=== PATIENT | female | born 1980 | race African-American/Black ===

== ENCOUNTER 2022-02-26 18:15 | Inpatient (IN) | payer OTHER ==
[2022-02-26] MEDS ORDERED: ELECTROLYTE-148 SOLN 1,000 ML IV SCH (19:45)
[2022-02-26 20:13] LABS: BASO % 0.4 % (0-2.0); EOS % 0.4 % (0-4.5); HEMATOCRIT 36.6 % (32.4-45.2); HEMOGLOBIN 12.6 GM/dL (10.7-15.3); MCH 30.6 pg (25.7-33.7); MCHC 34.5 g/dl (32.0-36.0); MEAN CELL VOLUME 88.8 fl (80-96); MEAN PLT VOLUME 10.4 fl (7.5-11.1); MONO % 6.7 % (3.8-10.2); NEUT % 79.5 % (42.8-82.8); RBC 4.12 M/mm3 (3.60-5.2); RDW 14.9 % (11.6-15.6); WHITE BLOOD COUNT 10.1 K/mm3 (4.0-10.0)
[2022-02-26 20:14] LABS: EPI CELLS >36 /uL (0-25.1); HYALINE CASTS 1 /uL (0-3.1); PH,URINE 6.5 (5.0-8.0); URINE APPEARANCE CLEAR; URINE BACTERIA 63 /uL (0-1359); URINE BILIRUBIN NEGATIVE (NEGATIVE); URINE COLOR YELLOW; URINE GLUCOSE (UA) NEGATIVE (NEGATIVE); URINE KETONE NEGATIVE (NEGATIVE); URINE LEUK ESTERASE 1+ (NEGATIVE); URINE NITRITE NEGATIVE (NEGATIVE); URINE PROTEIN NEGATIVE (NEGATIVE); URINE RBC 26 /uL (0-23.9); URINE UROBILINOGEN 0.2 mg/dL (0.2-1.0); URINE WBC 48 /uL (0-25.8)
[2022-02-26 20:22] LABS: INR 0.97 (0.83-1.09); PROTHROMBIN TIME (PATIENT) 11.1 SEC (9.7-13.0)
[2022-02-26 20:33] LABS: ALBUMIN 2.4 g/dl (3.4-5.0); CALCIUM 8.8 mg/dL (8.5-10.1)
[2022-02-26 20:34] VITALS: BMI 30.2
[2022-02-26 20:36] LABS: CREATININE 0.3 mg/dL (0.55-1.3); URIC ACID 3.4 mg/dL (2.6-7.2)
[2022-02-26 20:38] LABS: BILIRUBIN,TOTAL 0.2 mg/dL (0.2-1); TOT PROT 5.5 g/dl (6.4-8.2)
[2022-02-26 21:33] LABS: PLATELET COUNT 92 10^3/uL (134-434); PLATELET ESTIMATE ADEQUATE
[2022-02-26] MEDS ORDERED: ACETAMINOPHEN INJECTION 100 ML IVPB ONE (21:55)
[2022-02-26] MEDS ORDERED: ACETAMINOPHEN 1000 MG/100 ML BAG IVPB ONE (22:30)
[2022-02-26] MEDS ORDERED: BETAMET ACET/BETAMET NA PH 30 MG/5 ML VIAL ONE (23:46)
[2022-02-26] MEDS: BETAMET ACET/BETAMET NA PH 30 MG/5 ML VIAL IM SCH (23:50)
[2022-02-27] MEDS ORDERED: MAGNESIUM 4GM/H20 - 4 GM/100 ML IVPB IVPB SCH (00:30)
[2022-02-27] MEDS ORDERED: MAGNESIUM SULFATE 20GM/500ML - 20 GM/500 ML INFUS.BAG IVPB SCH (00:30)
[2022-02-27 01:53] LABS: ALBUMIN 2.5 g/dl (3.4-5.0); CALCIUM 9.1 mg/dL (8.5-10.1)
[2022-02-27 01:56] LABS: CREATININE 0.4 mg/dL (0.55-1.3)
[2022-02-27 01:58] LABS: BILIRUBIN,TOTAL 0.2 mg/dL (0.2-1); TOT PROT 5.6 g/dl (6.4-8.2)
[2022-02-27 02:09] LABS: BASO % 0.4 % (0-2.0); EOS % 0.5 % (0-4.5); HEMATOCRIT 38.5 % (32.4-45.2); HEMOGLOBIN 13.1 GM/dL (10.7-15.3); LYMPH % 14.4 % (8-40); MCH 30.3 pg (25.7-33.7); MCHC 34.1 g/dl (32.0-36.0); MEAN CELL VOLUME 88.8 fl (80-96); MEAN PLT VOLUME 11.2 fl (7.5-11.1); MONO % 8.3 % (3.8-10.2); NEUT % 76.4 % (42.8-82.8); PLATELET COUNT 91 10^3/uL (134-434); RBC 4.34 M/mm3 (3.60-5.2); RDW 14.9 % (11.6-15.6); WHITE BLOOD COUNT 11.5 K/mm3 (4.0-10.0)
[2022-02-27] MEDS: PRENATAL VITAMINS W/ FOLIC ACID TABLET (FP) PO SCH (11:00)
[2022-02-27] MEDS ORDERED: PRENATAL VITAMINS W/ FOLIC ACID TABLET (FP) PO ONE (11:33)
[2022-02-27 16:12] LABS: CREATININE, URINE RANDOM < 13.0 mg/dL (30-150)
[2022-02-27 21:15] LABS: BASO % 0.1 % (0-2.0); HEMATOCRIT 39.2 % (32.4-45.2); HEMOGLOBIN 13.2 GM/dL (10.7-15.3); LYMPH % 6.8 % (8-40); MCH 30.2 pg (25.7-33.7); MCHC 33.8 g/dl (32.0-36.0); MEAN CELL VOLUME 89.5 fl (80-96); MEAN PLT VOLUME 10.7 fl (7.5-11.1); MONO % 5.2 % (3.8-10.2); NEUT % 87.9 % (42.8-82.8); PLATELET COUNT 106 10^3/uL (134-434); RBC 4.38 M/mm3 (3.60-5.2); RDW 14.7 % (11.6-15.6); WHITE BLOOD COUNT 17.1 K/mm3 (4.0-10.0)
[2022-02-27 21:31] LABS: CALCIUM 9.5 mg/dL (8.5-10.1)
[2022-02-27 21:32] LABS: ALBUMIN 2.5 g/dl (3.4-5.0); BLOOD UREA NITROGEN 9.5 mg/dL (7-18)
[2022-02-27 21:33] LABS: ALBUMIN 2.5 g/dl (3.4-5.0)
[2022-02-27 21:35] LABS: CREATININE 0.4 mg/dL (0.55-1.3)
[2022-02-27 21:36] LABS: BILIRUBIN,DIRECT 0.1 mg/dL (0.0-0.2); TOT PROT 5.6 g/dl (6.4-8.2)
[2022-02-27 21:37] LABS: BILIRUBIN,TOTAL 0.3 mg/dL (0.2-1)
[2022-02-27 21:38] LABS: BILIRUBIN,TOTAL 0.5 mg/dL (0.2-1); TOT PROT 5.6 g/dl (6.4-8.2)
[2022-02-27 23:14] LABS: 24 HR URINE CREATININE 907.5 mg/24hr (600-1800)
[2022-02-27] MEDS ORDERED: ACETAMINOPHEN 500 MG TABLET (FP) PO ONE (23:25)
[2022-02-27] MEDS: BETAMET ACET/BETAMET NA PH 30 MG/5 ML VIAL IM SCH (23:50)
[2022-02-28] MEDS: PRENATAL VITAMINS W/ FOLIC ACID TABLET (FP) PO SCH (09:07)
[2022-02-28 13:33] VITALS: BP 138/81; PULSE 75; TEMP 98.1
== END 2022-02-28 15:45 | disposition home or self-care (01) | DRG 833 ==
LOC: JDEL 18:15 → JLDR 20:00 → J3W 02-27 14:20
PROVIDERS: ADMIT Obstetrics & Gynecology; ATTEND Obstetrics & Gynecology
DX: O14.13 Severe pre-eclampsia, third trimester (principal); Z3A.33 33 weeks gestation of pregnancy
CPT/HCPCS: 36415; 76819-TC; 80053; 80076; 81003; 82570; 82575; 84156; 84550; 85025; 85384; 85610; 86780; 86850; 86900; 86901; 96372; C9803-CS; U0003; U0005

== ENCOUNTER 2022-03-04 19:00 | Inpatient (IN) | payer OTHER ==
[2022-03-04 19:48] VITALS: BMI 26.0
[2022-03-04] MEDS ORDERED: ELECTROLYTE-148 SOLN 500 ML IV ONE (20:03)
[2022-03-04] MEDS ORDERED: CITRIC ACID/SODIUM CITRATE 30 ML UNIT-DOSE CUP PO ONE (20:03)
[2022-03-04 20:24] LABS: BASO % 0.4 % (0-2.0); HEMATOCRIT 39.6 % (32.4-45.2); HEMOGLOBIN 13.3 GM/dL (10.7-15.3); LYMPH % 13.5 % (8-40); MCH 30.2 pg (25.7-33.7); MCHC 33.6 g/dl (32.0-36.0); MEAN PLT VOLUME 11.2 fl (7.5-11.1); MONO % 6.8 % (3.8-10.2); NEUT % 78.3 % (42.8-82.8); PLATELET COUNT 111 10^3/uL (134-434); RDW 15.1 % (11.6-15.6); WHITE BLOOD COUNT 15.3 K/mm3 (4.0-10.0)
[2022-03-04 20:31] LABS: INR 0.96 (0.83-1.09)
[2022-03-04 20:34] LABS: ACTIVATED PTT 27.6 SECONDS (25.2-36.5)
[2022-03-04 20:44] LABS: CALCIUM 8.8 mg/dL (8.5-10.1)
[2022-03-04 20:45] LABS: ALBUMIN 2.7 g/dl (3.4-5.0); BLOOD UREA NITROGEN 14.7 mg/dL (7-18)
[2022-03-04 20:48] LABS: CREATININE 0.5 mg/dL (0.55-1.3)
[2022-03-04 20:50] LABS: BILIRUBIN,TOTAL 0.3 mg/dL (0.2-1); TOT PROT 5.7 g/dl (6.4-8.2)
[2022-03-04] MEDS ORDERED: ONDANSETRON 4 MG/2 ML VIAL IVPUSH PRN (20:53)
[2022-03-04] MEDS ORDERED: OXYTOCIN 20 UNITS in 0.9% NS 20 UNIT/1,000 ML INFUS.BAG IV ONE (20:56)
[2022-03-04] MEDS ORDERED: morphine SULFATE/PF 1 MG/2 ML (2cc Syringe - QUVA) ONE (20:57)
[2022-03-04] MEDS ORDERED: PHENYLEPHRINE HCL 10 MG/1 ML SINGLE DOSE VIAL ONE (20:57)
[2022-03-04] MEDS ORDERED: ceFAZolin SODIUM 1 GM VIAL ONE (21:21)
[2022-03-04] MEDS ORDERED: LABETALOL HCL 5 MG/1 ML (100MG/20 ML VIAL) ONE (21:30)
[2022-03-04] MEDS ORDERED: ONDANSETRON 4 MG/2 ML VIAL ONE (21:48)
[2022-03-04] MEDS ORDERED: MIDAZOLAM HCL 2 MG/2 ML SINGLE DOSE VIAL ONE (21:57)
[2022-03-04 22:09] LABS: CORD BASE EXCESS -0.9 mmol/L (0-2); CORD PCO2 40.8 mmHg (30-78); CORD pH 7.387 (7.14-7.44)
[2022-03-04 22:10] LABS: CORD PCO2 53.2 mmHg (30-78); CORD pH 7.339 (7.14-7.44)
[2022-03-04] MEDS ORDERED: BENZOCAINE 20% 57 GM BOTTLE TP PRN (22:36)
[2022-03-04] MEDS ORDERED: METHYLERGONOVINE MALEATE 0.2 MG/1 ML AMP IM PRN (22:36)
[2022-03-04] MEDS ORDERED: IBUPROFEN 600 MG TABLET (FP) PO PRN (22:36)
[2022-03-04] MEDS ORDERED: WITCH HAZEL 50% (TUCKS) 40 PAD/JAR PAD TP PRN (22:36)
[2022-03-04] MEDS ORDERED: IBUPROFEN 800 MG/8 ML IJ IVPB PRN (22:36)
[2022-03-04] MEDS ORDERED: BENZOCAINE 28 GM HEMORRHOIDAL OINTMENT TP PRN (22:36)
[2022-03-04] MEDS ORDERED: MAGNESIUM 4GM/H20 - 4 GM/100 ML IVPB IVPB SCH (22:45)
[2022-03-04] MEDS: OXYTOCIN 20 UNITS in 0.9% NS 20 UNIT/1,000 ML INFUS.BAG IV SCH (22:45)
[2022-03-04] MEDS ORDERED: LABETALOL HCL 200 MG TABLET (FP) PO PRN (22:48)
[2022-03-04] MEDS ORDERED: MAGNESIUM 4GM/H20 - 4 GM/100 ML IVPB IVPB ONE (22:55)
[2022-03-04] MEDS ORDERED: MAGNESIUM SULFATE 20GM/500ML - 20 GM/500 ML INFUS.BAG ONE (22:55)
[2022-03-04] MEDS: ELECTROLYTE-148 SOLN 1,000 ML IV SCH (23:12)
[2022-03-04] MEDS: MAGNESIUM SULFATE 20GM/500ML - 20 GM/500 ML INFUS.BAG IVPB SCH (23:30)
[2022-03-05 08:55] LABS: BLOOD UREA NITROGEN 11.2 mg/dL (7-18)
[2022-03-05 08:59] LABS: CREATININE 0.6 mg/dL (0.55-1.3)
[2022-03-05 09:00] LABS: BILIRUBIN,TOTAL 0.3 mg/dL (0.2-1); TOT PROT 4.4 g/dl (6.4-8.2)
[2022-03-05 09:04] LABS: ALBUMIN 2.1 g/dl (3.4-5.0); CALCIUM 7.1 mg/dL (8.5-10.1)
[2022-03-05 09:05] LABS: BASO % 0.3 % (0-2.0); EOS % 0.2 % (0-4.5); HEMATOCRIT 33.2 % (32.4-45.2); HEMOGLOBIN 11.3 GM/dL (10.7-15.3); LYMPH % 10.5 % (8-40); MCH 30.3 pg (25.7-33.7); MCHC 33.9 g/dl (32.0-36.0); MEAN CELL VOLUME 89.5 fl (80-96); MEAN PLT VOLUME 10.4 fl (7.5-11.1); MONO % 6.3 % (3.8-10.2); NEUT % 82.7 % (42.8-82.8); PLATELET COUNT 102 10^3/uL (134-434); RBC 3.71 M/mm3 (3.60-5.2); RDW 14.6 % (11.6-15.6); WHITE BLOOD COUNT 19.1 K/mm3 (4.0-10.0)
[2022-03-05] MEDS: PRENATAL VITAMINS W/ FOLIC ACID TABLET (FP) PO SCH (13:14)
[2022-03-05] MEDS ORDERED: OXYTOCIN 20 UNITS in 0.9% NS 20 UNIT/1,000 ML INFUS.BAG IV ONE (13:43)
[2022-03-05] MEDS: OXYTOCIN 20 UNITS in 0.9% NS 20 UNIT/1,000 ML INFUS.BAG IV SCH (13:46)
[2022-03-05] MEDS ORDERED: NIFEdipine E.R. 30 MG TABLET ONE (15:11)
[2022-03-05] MEDS: NIFEdipine E.R. 30 MG TABLET PO SCH (15:21)
[2022-03-05] MEDS: ACETAMINOPHEN 325 MG TABLET (FP) PO PRN (17:43)
[2022-03-05] MEDS ORDERED: ACETAMINOPHEN 325 MG TABLET (FP) ONE (17:44)
[2022-03-05] MEDS: LABETALOL HCL 200 MG TABLET (FP) PO PRN (18:12)
[2022-03-05] MEDS ORDERED: LABETALOL HCL 200 MG TABLET (FP) ONE (18:13)
[2022-03-05] MEDS: SIMETHICONE 80 MG TAB.CHEW (FP) PO PRN ×2 (18:20→22:46)
[2022-03-05] MEDS: MAGNESIUM SULFATE 20GM/500ML - 20 GM/500 ML INFUS.BAG IVPB SCH (19:50)
[2022-03-05] MEDS ORDERED: MAGNESIUM SULFATE 20GM/500ML - 20 GM/500 ML INFUS.BAG ONE (19:50)
[2022-03-05] MEDS ORDERED: BISACODYL 10 MG SUPP.RECT RC PRN (22:36)
[2022-03-05] MEDS: ENOXAPARIN NA (PORCINE) 40 MG/0.4 ML DISP.SYRIN SQ SCH (22:46)
[2022-03-05] MEDS: oxyCODONE HCL 5 MG TABLET PO PRN (22:46)
[2022-03-06] MEDS: ACETAMINOPHEN 325 MG TABLET (FP) PO PRN (02:00)
[2022-03-06] MEDS: SIMETHICONE 80 MG TAB.CHEW (FP) PO PRN ×3 (09:02→21:11)
[2022-03-06] MEDS: PRENATAL VITAMINS W/ FOLIC ACID TABLET (FP) PO SCH (09:02)
[2022-03-06] MEDS: NIFEdipine E.R. 30 MG TABLET PO SCH (09:02)
[2022-03-06] MEDS: oxyCODONE HCL 5 MG TABLET PO PRN ×3 (09:02→21:12)
[2022-03-06] MEDS: ENOXAPARIN NA (PORCINE) 40 MG/0.4 ML DISP.SYRIN SQ SCH (09:03)
[2022-03-06 11:43] LABS: HEMATOCRIT 36.3 % (32.4-45.2); HEMOGLOBIN 12.1 GM/dL (10.7-15.3); MCH 30.2 pg (25.7-33.7); MCHC 33.5 g/dl (32.0-36.0); MEAN CELL VOLUME 90.3 fl (80-96); MEAN PLT VOLUME 9.3 fl (7.5-11.1); PLATELET COUNT 152 10^3/uL (134-434); RBC 4.02 M/mm3 (3.60-5.2); RDW 14.9 % (11.6-15.6); WHITE BLOOD COUNT 21.3 K/mm3 (4.0-10.0)
[2022-03-06 12:06] LABS: ALBUMIN 2.3 g/dl (3.4-5.0); BLOOD UREA NITROGEN 6.4 mg/dL (7-18)
[2022-03-06 12:08] LABS: CREATININE 0.5 mg/dL (0.55-1.3)
[2022-03-06 12:10] LABS: BILIRUBIN,TOTAL 0.3 mg/dL (0.2-1); TOT PROT 5.3 g/dl (6.4-8.2)
[2022-03-06 12:18] LABS: ANISOCYTOSIS 0; CALCIUM 8.5 mg/dL (8.5-10.1); HELMET CELLS 0; HOWELL-JOLLY BODIES 0; MACROCYTOSIS 0; OVALOCYTE 0; ROULEAU 0; SICKELED CELLS 0; TARGET CELLS 0; TEAR DROP CELLS 0; TOXIC GRANULATION 0
[2022-03-06] MEDS: SENNOSIDES/DOCUSATE COMBO (SENNA PLUS) TABLET (UD) PO PRN (21:11)
[2022-03-07] MEDS: SIMETHICONE 80 MG TAB.CHEW (FP) PO PRN ×2 (06:41→17:23)
[2022-03-07] MEDS: oxyCODONE HCL 5 MG TABLET PO PRN ×3 (06:41→17:23)
[2022-03-07 08:25] LABS: BASO % 0.4 % (0-2.0); EOS % 1.2 % (0-4.5); HEMATOCRIT 32.8 % (32.4-45.2); HEMOGLOBIN 11.1 GM/dL (10.7-15.3); LYMPH % 12.3 % (8-40); MCH 30.5 pg (25.7-33.7); MCHC 33.8 g/dl (32.0-36.0); MEAN CELL VOLUME 90.4 fl (80-96); MEAN PLT VOLUME 9.8 fl (7.5-11.1); MONO % 6.2 % (3.8-10.2); NEUT % 79.9 % (42.8-82.8); PLATELET COUNT 127 10^3/uL (134-434); RBC 3.63 M/mm3 (3.60-5.2); WHITE BLOOD COUNT 15.3 K/mm3 (4.0-10.0)
[2022-03-07 08:36] LABS: BLOOD UREA NITROGEN 5.8 mg/dL (7-18)
[2022-03-07 08:40] LABS: CREATININE 0.3 mg/dL (0.55-1.3)
[2022-03-07 08:41] LABS: BILIRUBIN,TOTAL 0.4 mg/dL (0.2-1); TOT PROT 4.7 g/dl (6.4-8.2)
[2022-03-07] MEDS: ENOXAPARIN NA (PORCINE) 40 MG/0.4 ML DISP.SYRIN SQ SCH (10:50)
[2022-03-07] MEDS: PRENATAL VITAMINS W/ FOLIC ACID TABLET (FP) PO SCH (10:50)
[2022-03-07] MEDS: NIFEdipine E.R. 30 MG TABLET PO SCH (10:50)
[2022-03-08] MEDS: SENNOSIDES/DOCUSATE COMBO (SENNA PLUS) TABLET (UD) PO PRN ×2 (00:26→21:11)
[2022-03-08] MEDS: SIMETHICONE 80 MG TAB.CHEW (FP) PO PRN ×3 (00:26→23:54)
[2022-03-08] MEDS: ACETAMINOPHEN 325 MG TABLET (FP) PO PRN ×2 (00:27→12:25)
[2022-03-08] MEDS: oxyCODONE HCL 5 MG TABLET PO PRN ×2 (04:51→23:55)
[2022-03-08] MEDS: ENOXAPARIN NA (PORCINE) 40 MG/0.4 ML DISP.SYRIN SQ SCH (10:15)
[2022-03-08] MEDS: NIFEdipine E.R. 30 MG TABLET PO SCH (10:15)
[2022-03-08] MEDS: PRENATAL VITAMINS W/ FOLIC ACID TABLET (FP) PO SCH (10:15)
[2022-03-08] MEDS ORDERED: oxyCODONE HCL 5 MG TABLET PO PRN (20:23)
[2022-03-09] MEDS: ACETAMINOPHEN 325 MG TABLET (FP) PO PRN (03:55)
[2022-03-09 08:17] LABS: BASO % 0.6 % (0-2.0); EOS % 1.6 % (0-4.5); HEMOGLOBIN 11.1 GM/dL (10.7-15.3); LYMPH % 15.7 % (8-40); MCH 30.5 pg (25.7-33.7); MCHC 33.7 g/dl (32.0-36.0); MEAN CELL VOLUME 90.6 fl (80-96); MEAN PLT VOLUME 8.7 fl (7.5-11.1); MONO % 6.6 % (3.8-10.2); NEUT % 75.5 % (42.8-82.8); PLATELET COUNT 186 10^3/uL (134-434); RBC 3.64 M/mm3 (3.60-5.2); WHITE BLOOD COUNT 10.7 K/mm3 (4.0-10.0)
[2022-03-09 08:33] LABS: CALCIUM 8.3 mg/dL (8.5-10.1)
[2022-03-09 08:34] LABS: ALBUMIN 2.2 g/dl (3.4-5.0); BLOOD UREA NITROGEN 8.9 mg/dL (7-18)
[2022-03-09 08:37] LABS: CREATININE 0.3 mg/dL (0.55-1.3)
[2022-03-09 08:39] LABS: BILIRUBIN,TOTAL 0.3 mg/dL (0.2-1); TOT PROT 5.4 g/dl (6.4-8.2)
[2022-03-09] MEDS: PRENATAL VITAMINS W/ FOLIC ACID TABLET (FP) PO SCH (10:09)
[2022-03-09] MEDS: NIFEdipine E.R. 30 MG TABLET PO SCH (10:09)
[2022-03-09] MEDS: ENOXAPARIN NA (PORCINE) 40 MG/0.4 ML DISP.SYRIN SQ SCH (10:09)
[2022-03-09] MEDS: SENNOSIDES/DOCUSATE COMBO (SENNA PLUS) TABLET (UD) PO PRN (23:59)
[2022-03-09] MEDS: SIMETHICONE 80 MG TAB.CHEW (FP) PO PRN (23:59)
[2022-03-10] MEDS: oxyCODONE HCL 5 MG TABLET PO PRN
[2022-03-10] MEDS: LABETALOL HCL 200 MG TABLET (FP) PO PRN ×2 (06:27→15:11)
[2022-03-10 07:13] LABS: BASO % 0.6 % (0-2.0); EOS % 1.8 % (0-4.5); HEMATOCRIT 32.7 % (32.4-45.2); HEMOGLOBIN 11.1 GM/dL (10.7-15.3); LYMPH % 18.6 % (8-40); MCH 30.8 pg (25.7-33.7); MCHC 33.8 g/dl (32.0-36.0); MEAN CELL VOLUME 91.2 fl (80-96); MEAN PLT VOLUME 8.7 fl (7.5-11.1); MONO % 6.7 % (3.8-10.2); NEUT % 72.3 % (42.8-82.8); PLATELET COUNT 200 10^3/uL (134-434); RBC 3.59 M/mm3 (3.60-5.2); RDW 14.7 % (11.6-15.6); WHITE BLOOD COUNT 10.8 K/mm3 (4.0-10.0)
[2022-03-10 07:25] LABS: CALCIUM 8.5 mg/dL (8.5-10.1)
[2022-03-10 07:26] LABS: ALBUMIN 2.3 g/dl (3.4-5.0); BLOOD UREA NITROGEN 11.7 mg/dL (7-18)
[2022-03-10 07:29] LABS: CREATININE 0.4 mg/dL (0.55-1.3)
[2022-03-10 07:31] LABS: BILIRUBIN,TOTAL 0.2 mg/dL (0.2-1); TOT PROT 5.4 g/dl (6.4-8.2)
[2022-03-10] MEDS: ENOXAPARIN NA (PORCINE) 40 MG/0.4 ML DISP.SYRIN SQ SCH (09:23)
[2022-03-10] MEDS: PRENATAL VITAMINS W/ FOLIC ACID TABLET (FP) PO SCH (09:23)
[2022-03-10] MEDS: NIFEdipine E.R. 30 MG TABLET PO SCH (10:45)
[2022-03-10] MEDS ORDERED: NIFEdipine E.R. 30 MG TABLET PO ONE (12:30)
[2022-03-10] MEDS: ACETAMINOPHEN 325 MG TABLET (FP) PO PRN (16:36)
[2022-03-10] MEDS: ELECTROLYTE-148 SOLN 1,000 ML IV SCH (19:50)
[2022-03-11 08:38] VITALS: TEMP 97.9
[2022-03-11] MEDS ORDERED: NIFEdipine E.R 60 MG TABLET PO SCH (10:00)
[2022-03-11] MEDS: ENOXAPARIN NA (PORCINE) 40 MG/0.4 ML DISP.SYRIN SQ SCH (10:13)
[2022-03-11] MEDS: PRENATAL VITAMINS W/ FOLIC ACID TABLET (FP) PO SCH (10:13)
[2022-03-11 14:09] VITALS: BP 130/78; PULSE 116
== END 2022-03-11 16:50 | disposition home or self-care (01) | DRG 788 ==
LOC: JLDR 19:00 → J3W 03-05 22:06
PROVIDERS: ADMIT Obstetrics & Gynecology; ATTEND Obstetrics & Gynecology
PROC: 10D00Z1 Extraction of Products of Conception, Low, Open Approach (ICD-10-PCS; principal; 2022-03-04)
PROC: 0UB90ZZ Excision of Uterus, Open Approach (ICD-10-PCS; 2022-03-04)
DX: O14.14 Severe pre-eclampsia complicating childbirth (principal); O60.14X0 Preterm labor third trimester with preterm delivery third trimester, not applicable or unspecified; O34.13 Maternal care for benign tumor of corpus uteri, third trimester; D25.2 Subserosal leiomyoma of uterus; R06.09 Other forms of dyspnea; Z3A.34 34 weeks gestation of pregnancy; Z37.0 Single live birth
CPT/HCPCS: 36415; 36600; 71046-TC-FY; 80048; 80053; 82803; 83735; 85025; 85610; 85730; 86780; 86850; 86900; 86901; 88305-TC; 88307-TC; 93005; 93010; 93306-TC; C9803-CS; U0003; U0005